=== PATIENT | male | born 2000 | race Hispanic/Latino ===

== ENCOUNTER 2021-02-25 12:06 | Inpatient (IN) | payer OTHER ==
[~2021-02-25] VITALS: Ht 172.7 cm; Wt 80.9 kg
[2021-02-25 14:56] LABS: HEMATOCRIT 48.9 % (42.0-52.0); HEMOGLOBIN 16.8 g/dl (13.5-17.5); MEAN CORPUSCULAR HGB CONC 34.4 g/dl (32.0-36.5); MEAN CORPUSCULAR VOLUME 90.2 fl (80.0-96.0); PLATELET COUNT, AUTOMATED 203 10^3/uL (150-450); RED BLOOD COUNT 5.42 10^6/uL (4.30-6.10); WHITE BLOOD COUNT 6.9 10^3/uL (4.0-10.0)
[2021-02-25 15:17] LABS: AMPHETAMINES LEVEL URINE NEGATIVE (NEGATIVE); BARBITURATES URINE NEGATIVE (NEGATIVE); BENZODIAZEPINES URINE NEGATIVE (NEGATIVE); CANNABINOIDS URINE NEGATIVE (NEGATIVE); COCAINE METABOLITE URINE NEGATIVE (NEGATIVE); METHADONE URINE NEGATIVE (NEGATIVE); OPIATES URINE NEGATIVE (NEGATIVE); PHENCYCLIDINE URINE NEGATIVE (NEGATIVE)
[2021-02-25 15:39] LABS: ACETAMINOPHEN LEVEL < 2.0 UG/ML (10.0-30.0); ALBUMIN 3.8 GM/DL (3.2-5.2); ALT/SGPT 18 U/L (12-78); BILIRUBIN,DIRECT 0.1 MG/DL (0.0-0.2); BILIRUBIN,TOTAL 0.5 MG/DL (0.2-1.0); BLOOD UREA NITROGEN 13 MG/DL (7-18); CALCIUM LEVEL 9.4 MG/DL (8.5-10.1); CARBON DIOXIDE LEVEL 29 MEQ/L (21-32); CHLORIDE LEVEL 106 MEQ/L (98-107); CREATININE FOR GFR 1.16 MG/DL (0.70-1.30); ETHYL ALCOHOL (ETHANOL) < 0.003 % (0.000-0.010); GLUCOSE, FASTING 76 MG/DL (70-100); POTASSIUM SERUM 4.4 MEQ/L (3.5-5.1); SALICYLATE LEVEL < 1.7 MG/DL (5.0-30.0); SODIUM LEVEL 141 MEQ/L (136-145); THYROID STIMULATING HORMONE 0.911 uIU/ML (0.463-3.98); TOTAL PROTEIN 7.3 GM/DL (6.4-8.2)
[2021-02-25 16:31] LABS: RSV AMPLIFICATION NEGATIVE (NEGATIVE)
--- NOTE | 2021-02-25 17:10 | MHIPNPDOC ---
[facility] Progress Note Progress Note DATE OF SERVICE: 02/25/21 Patient presented by PSA, meets criteria for involuntary admission. Was brought in by [place] [facility] after reporting suicidal ideation for past 2-3 weeks. stressors include home sick, refuses vaccination by c.o.c, misses brother and sister, has racing thoughts, decreased sleep, lack of appetite, thinks has hallucinations due to lack of sleep. Vital Signs Vital Signs Date Time Temp Pulse Resp B/P (MAP) Pulse Ox O2 Delivery O2 Flow Rate FiO2 02/25/21 12:27 97.9 61 16 127/71 (89) 100 Room Air Laboratory Data 24H Labs Laboratory Tests 2 02/25/21 13:17: Nucleated Red Blood Cells % (auto) 0.0, Anion Gap 6L, Calcium Level 9.4, Total Bilirubin 0.5, Direct Bilirubin 0.1, Aspartate Amino Transf (AST/SGOT) 12, Alanine Aminotransferase (ALT/SGPT) 18, Alkaline Phosphatase 78, Total Protein 7.3, Albumin 3.8, Albumin/Globulin Ratio 1.1, Thyroid Stimulating Hormone (TSH) 0.911, Salicylates Level < 1.7L, Acetaminophen Level < 2.0L, Ethyl Alcohol Level < 0.003 02/25/21 13:21: Urine Opiates Screen NEGATIVE, Urine Methadone Screen NEGATIVE, Urine Barbiturates Screen NEGATIVE, Urine Phencyclidine Screen NEGATIVE, Urine Amphetamines Screen NEGATIVE, Urine Benzodiazepines Screen NEGATIVE, Urine Cocaine Metabolite Screen NEGATIVE, Urine Cannabinoids Screen NEGATIVE 02/25/21 15:34: Coronavirus (COVID-19)(PCR) NEGATIVE, Influenza Type A (RT-PCR) NEGATIVE, Influ janny Type B (RT-PCR) NEGATIVE, Respiratory Syncytial Virus (PCR) NEGATIVE CBC/BMP Laboratory Tests 02/25/21 13:17 CARLOS MANUEL WARREN MD Feb 25, 2021 17:10
[2021-02-25] MEDS ORDERED: HOME MED LIST COMPLETE! XX SCH (19:55)
[2021-02-25] MEDS ORDERED: ACETAMINOPHEN TAB 650MG DOSE (2X325MG) PO PRN (20:10)
[2021-02-25] MEDS ORDERED: MOM 30ML SUSPENSION UDC PO PRN (20:10)
[2021-02-25] MEDS ORDERED: traZODone 50 MG TAB PO PRN (20:10)
[2021-02-25] MEDS ORDERED: OLANZapine ORAL DISINTEGRATING TAB 5MG PO PRN (20:10)
[2021-02-25] MEDS ORDERED: MAALOX 30 ML SUSP *UDC PO PRN (20:10)
[2021-02-25] MEDS ORDERED: diphenhydrAMINE 25MG CAP PO PRN (20:10)
[2021-02-25] MEDS ORDERED: NICOTINE 21MG/24HR 1 EA TRANSDERMAL TD PRN (20:10)
[2021-02-25] MEDS ORDERED: hydrOXYzine 50 MG TAB PO PRN (22:20)
[2021-02-25 22:45] VITALS: BP 141/97
[2021-02-26 06:43] VITALS: BP 132/58
--- NOTE | 2021-02-26 09:48 | HPEPDOC ---
[facility] Medical History & Physical Date of Admission Feb 25, 2021 Date of Service: Feb 26, 2021 History and Physical CHIEF COMPLAINT: Suicidal ideation HISTORY OF PRESENT ILLNESS: Patient was brought in emergency department via ambulance time. 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 Apparently he is quite homesick and unable to take leave or visit his family because he is unvaccinated. This has been quite stressful for him, and to the point where he has been losing a significant amount of sleep. Also, apparently has been having some suicidal ideations for the past few days at least. No homicidal ideations. Because of his suicidal ideations (without plan) he was brought to the emergency department for further evaluation and then admitted to the inpatient mental health unit. CODE STATUS: Full code PAST MEDICAL HISTORY: No past medical history PAST SURGICAL HISTORY: Appendectomy when he was approximately 11-12 years old Testicular torsion 2018 SOCIAL HISTORY: Denies tobacco use, alcohol use, drug use FAMILY HISTORY: Patient reports that his family members are healthy, and he is unaware of any medical conditions that they have. REVIEW OF SYSTEMS: Constitutional: Patient denies fevers, chills, night sweats, recent weight gain/loss. HEENT: Patient denies blurred or double vision, transient visual disturbances, postnasal drip, epistaxis, sore throat, difficulty chewing or swallowing food. Cardiovascular: Patient denies chest discomfort/pain, palpitations, exertional dyspnea, orthopnea, edema of the extremities, claudication. Respiratory: Patient denies dyspnea, wheezing, cough, hemoptysis, sputum production. Gastrointestinal: Patient denies nausea, vomiting, diarrhea, constipation, abdominal pain, melena, hematochezia, hematemesis, jaundice. Psychiatric: Admits to suicidal ideations without plans. Denies homicidal ana m ations. He does admit to having some auditory hallucinations which she attributes to lack of sleep. He states that sometimes he is awake and believes that he is talking on the phone with his family, and believes that he hears them talking back to him (or continues to hear an ongoing conversation with his family members), and then realizes that he is not actually on the phone or speaking to them. PHYSICAL EXAMINATION: General: Awake, alert, oriented. He does not appear to be in any acute distress at this time. HEENT: Head normocephalic atraumatic, conjunctiva are pink, sclera are nonicteric, buccal mucosa is pink and moist with no lesions in the oropharynx. Hearing is grossly intact to conversation. Respiratory: Clear to auscultation bilaterally with no wheezes, rales, or rhonchi. Cardiovascular: Regular rate and rhythm, with no rubs, gallops, or murmur. Abdomen: Soft, nontender, nondistended, no hepatosplenomegaly appreciated. Bowel sounds present. Extremities: 2+ pulses in the radial and dorsalis pedis bilaterally. No evidence of clubbing or cyanosis. ASSESSMENT: Suicidal ideations Auditory hallucination/delusion Depression Homesickness -Continue management per psychiatric team Otherwise he does not have any other acute or chronic medical conditions, and he does not take any home medications. Thank you for the consultation, please feel free to consult us once again if any medical issues arise. Vital Signs Vital Signs Date Time Temp Pulse Resp B/P (MAP) Pulse Ox O2 Delivery O2 Flow Rate FiO2 02/26/21 06:43 97.9 58 16 132/58 (82) 100 Room Air Laboratory Data Labs 24H Laboratory Tests 2 02/25/21 13:17: Nucleated Red Blood Cells % (auto) 0.0, Anion Gap 6L, Calcium Level 9.4, Total Bilirubin 0.5, Direct Bilirubin 0.1, Aspartate Amino Transf (AST/SGOT) 12, Al anine Aminotransferase (ALT/SGPT) 18, Alkaline Phosphatase 78, Total Protein 7.3, Albumin 3.8, Albumin/Globulin Ratio 1.1, Thyroid Stimulating Hormone (TSH) 0.911, Salicylates Level < 1.7L, Acetaminophen Level < 2.0L, Ethyl Alcohol Level < 0.003 02/25/21 13:21: Urine Opiates Screen NEGATIVE, Urine Methadone Screen NEGATIVE, Urine Barbiturates Screen NEGATIVE, Urine Phencyclidine Screen NEGATIVE, Urine Amphetamines Screen NEGATIVE, Urine Benzodiazepines Screen NEGATIVE, Urine Cocaine Metabolite Screen NEGATIVE, Urine Cannabinoids Screen NEGATIVE 02/25/21 15:34: Coronavirus (COVID-19)(PCR) NEGATIVE, Influenza Type A (RT-PCR) NEGATIVE, Influenza Type B (RT-PCR) NEGATIVE, Respiratory Syncytial Virus (PCR) NEGATIVE CBC/BMP Laboratory Tests 02/25/21 13:17 Home Medications No Active Prescriptions or Reported Meds Allergies Coded Allergies: No Known Allergies (Verified Allergy, Unknown, 02/25/21) A-FIB/CHADSVASC A-FIB History Current/History of A-Fib/PAF?: No OTILIO ACE DO Feb 26, 2021 09:48
--- NOTE | 2021-02-26 17:14 | MHHPEPDOC ---
General Date Of Admission: Feb 25, 2021 Legal Status: 9.39 Chief Complaint "I was depressed and anxious, and having some suicidal thoughts." History of Present Illness HISTORY OF THE PRESENT ILLNESS: Patient is a 20 -year-old , male, who reporting increased depression and anxiety and suicidal thoughts. 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 Recently reporting having auditory hallucinations after Grandfather , poor sleep, having passive suicidal thinking and poor appetite (Loss of 50+ in 9 months) PER ED REPORT: Pt was referred to ED by [facility] after he presented to the walk-in clinic stating he was feeling suicidal with no specific plan. Pt states, "I'm upset." Pt reports struggling with suicidal thoughts for the past 2-3 wks with no specific plan. Stressors include feeling very homesick and [employer] is refusing him to go on leave because he is not vaccinated. Pt is refusing to get vaccinated, therefore is not able to leave and visit his family back home([place]). He denies any other stressors but does report his mind is racing and is having a difficult time concentrating. Pt states he is still feeling suicidal, but does not believe he would ever attempt and states, "I'm just having bad thoughts, but I would never do anything." In addition to SI, pt reports suffering from AH. He suspects it is due to lack sleep Psychiatric Review of Systems Depression (2 or more weeks): depressed mood, anhedonia, insomnia/hypersomnia, feelings of excess/guilt, feelings of worthlesness (and helplessness), decreased energy, difficulty concentrating, psychomotor changes, suicidal thoughts [place] (4 or more days of): denies Psychosis: auditory hallucination, paranoia PTSD: denies Anxiety: situational anxiety, stressor related anxiety Anxiety/ 6 months or more of: difficulty concentrating Past Psychiatric History Previous Psychiatric Diagnosis: None Previous Psychiatric Admissions: First hospitalization Suicide Attempts: Ideations only Psychiatric Follow-up: [facility] Psychiatric medications: None Past Medical History Medical Problems None Head Injury: No Seizures: No Hospitalizations: Yes Surgeries: Yes (Appendectomy, Testicular Torsion) Family Medical/Psychiatric HX Medical Problems No contributory issues Psychiatric Disorders: No Addiction: No Suicide Attemps/Completions: No Addiction History denies Social History Childhood: Born in [place], [place]. Family moved to [place] 5 years ago and he had his first bout of depression. 4 Sisters and one younger brother. He is the second oldest. When he was in [place] he had difficulty is school, moved to [place] and did not go to school right away (4 months) did well in school in [place]. 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 Stressors 1. 2. When I can't help the people I love. Mental Status Examination General Appearance: well groomed, appears stated age, hospital scubs/clothing Build: average Demeanor: guarded Eye Contact: average Activity: anxious Behavior: cooperative Speech: spontaneous, low in volume Mood: depressed, anxious Affect: constricted Thought Process: logical/linear Thought Content (Delusions): none reported Thought Content (Other): guarded, coherent Thought Content (Aggressive): none reported Perception (Hallucinations): auditory Perception (Other): none reported Cognition (Impairment of): none reported Cognition(Intelligence Est.): average Oriented: Awake, Alert, Oriented times three Insight: fair Judgment: Fair Psychosis: Denies Diagnoses Major Depressive Disorder, Single Episode, Mild A-FIB/CHADSVASC A-FIB History Current/History of A-Fib/PAF?: No Current PO Anticoag Therapy: No Assessment Patient is a 20 -year-old , male, who reporting increased depression and anxiety and suicidal thoughts. 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 Recently reporting having auditory hallucinations after Grandfather , poor sleep, having passive suicidal thinking and poor appetite (Loss of 50+ in 9 months). He reports being very homesick and feeling badly that he cannot help his family more (monetary and presence). Patient is agreeable to medications and will start Zoloft for depression and Hydroxyzine for anxiety. Patient will be afforded individual and group therapy, medication management, and safe environment. She will be discharged when she is stable Initial Treatment Plan 1. Patient was admitted on a [9.39] status. 2. Complete history was obtained. 3. With patients permission, family will be contacted and database will be expanded. 4. Patients medication regimen will be reviewed and changed accordingly. 5. Patient will be provided with protected environment. 6. Patient will be treated with individual, group, and milieu therapies. 7. Patient will receive supportive psych-education. 8. Discharge planning will commence immediately. 9. Outpatient follow-up treatment will be strongly recommended. 10. The initial treatment plan will focus initially on: * Depression. * Risk for suicide. ESTIMATED LENGTH OF STAY: 3-5 DAYS. TIME SPENT COUNSELING AND COORDINATING INITIAL CARE: 60 minutes. Tobacco Cessation Screen If Patient is a Smoker Not a smoker N/A-No Antipsychotics Vital Signs Vital Signs Date Time Temp Pulse Resp B/P (MAP) Pulse Ox O2 Delivery O2 Flow Rate FiO2 02/26/21 06:43 97.9 58 16 132/58 (82) 100 Room Air Medications No Active Prescriptions or Reported Meds Allergies Coded Allergies: No Known Allergies (Verified Allergy, Unknown, 02/25/21) AIDAN ALANIS NP Feb 26, 2021 17:14
[2021-02-26 18:58] VITALS: BP 133/71
[2021-02-26] MEDS ORDERED: SERTRALINE HCL 25 MG TABLET PO ONE (21:00)
[2021-02-27 06:40] VITALS: BP 112/54
--- NOTE | 2021-02-27 12:43 | MHDSPDOC ---
[facility] Discharge Summary Discharge Summary DATE OF ADMISSION: Feb 25, 2021 at 20:06 DATE OF DISCHARGE: Feb 27, 2021 at 0938 DISCHARGE DIAGNOSES: Major Depressive Disorder, Single Episode, Mild REASON FOR ADMISSION: Patient is a 20 -year-old , male, who reporting increased depression and anxiety and suicidal thoughts . 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 "I was depressed and anxious, and having some suicidal thoughts." Recently reporting having auditory hallucinations after Grandfather , poor sleep, having passive suicidal thinking and poor appetite (Loss of 50+ in 9 months) PER ED REPORT: Pt was referred to ED by [facility] after he presented to the walk-in clinic stating he was feeling suicidal with no specific plan. Pt states, "I'm upset." Pt reports struggling with suicidal thoughts for the past 2-3 wks with no specific plan. Stressors include feeling very homesick and [employer] is refusing him to go on leave because he is not vaccinated. Pt is refusing to get vaccinated, therefore is not able to leave and visit his family back home([place]). He denies any other stressors but does report his mind is racing and is having a difficult time concentrating. Pt states he is still feeling suicidal, but does not believe he would ever attempt and states, "I'm just having bad thoughts, but I would never do anything." In addition to SI, pt reports suffering from AH. He suspect s it is due to lack sleep VITAL SIGNS: See below. CONSULTANTS INVOLVED: See Medical H + P by Hospitalist TREATMENT AND PROGRESS ON THE UNIT: Patient was admitted to the [facility] on a 9.39 legal status was afforded the following treatment modalities: 1) Individual Therapy 2) Group Therapy 3) Medication Management 4) Milieu Therapy 5) Safe Environment HOSPITAL COURSE: Patient was admitted to [facility] on a 9.39 legal status. Patient declined medications, although Sertraline was ordered. He felt that strongly about medications. Mood, anxiety, and intrusive thoughts improved with treatment. Pt attended groups daily during stay. He was social with peers and visible on the unit, pts symptoms improved with treatment. On day of discharge pt. denied depression, anxiety, insomnia, SI/HI, hallucinations, delusions. Pt was discharged home with follow-up at [facility]. Pt felt safe for discharge. DISCHARGE ASSESSMENT: In today's interview, patient is alert and oriented, pt.s dress is appropriate. Hygiene and grooming is well-kempt. Smiles on approach and is pleasant and engaged in the interview. Denies depression and anxiety. Denies suicidal and homicidal ideation, planning or intent. Denies and is not observed with hyacinth, psychotic symptoms of delusions, bizarre thinking, obsessions, paranoia, ruminations illogical thoughts, flight of ideas or having poor insight and judgement. Reinforced with patient need to abstain from alcohol and drugs. At discharge patient has normal mentation, declines further hospitalization on a voluntary status and meets criteria for discharge today. Reviewed with patient today his stressors, with patient on reducing some of his anxieties surrounding chain of command toxic environment and how to perceive negative thinking with regards to . Also encourage patient to consider that his family may not need him and that he is catastrophizing that they are unable to survive without his help. MENTAL STATUS EXAMINATION ON DISCHARGE: Patient is a 20 -year-old , male, who reporting increased depression and anxiety and suicidal thoughts . Patient is cooperative and pleasant in the interview sitting upright in a chair. His hygiene and grooming is well kempt. He maintains a fair eye contact, at times during the interview it is avoidant. Speech: Is fluid, conversant, normal rate, tone and volume Language skills are intact Thought processes including: linear and goal oriented Thought content: denies depression and anxiety. Denies suicidal/homicidal ideation, planning or intent. Abstract reasoning, and computation: fair Description of associations: denies, none observed Description of abnormal or psychotic thoughts: denies, none observed. Judgment: fair Insight: fair Orientation: alert and oriented to person, place, time and situation Recent and remote memory: intact Attention span and concentration: good Language: expansive Fund of knowledge: average Mood: Euthymic Mood Affect: reactive Suicide Risk Assessment: 1) Does the patient wish to be ? No 2) Since your admission, have you had any actual thought of killing yourself? No 3) Since your admission, have you been thinking about how you might do this? No 4) Since your admission, have you had these thoughts and had some intention of acting on them? No 5) Since your admission, have you started to work out or worked out the details of how to kill yourself? No 5A) Do you intent to carry out this plan? No and NA 6) Have you ever done anything, started anything, or prepared to do anything with any intent to ? No 6A) How long since your admission did you do any of these? NA MEDICATIONS ON DISCHARGE: See Medication Reconciliation PLAN/FOLLOWUP ARRANGEMENTS: [facility] The amount of time spent in the coordination of care for this patient was approx imately 25 minutes. ETOH/Disorder Med Rx ETOH/DRUG DISORDER RX: N/A Vital Signs/I&Os Vital Signs Date Time Temp Pulse Resp B/P (MAP) Pulse Ox O2 Delivery O2 Flow Rate FiO2 02/27/21 06:40 96.8 83 16 112/54 (73) 100 Room Air Medications No Active Prescriptions or Reported Meds Allergies Coded Allergies: No Known Allergies (Verified Allergy, Unknown, 02/25/21) AIDAN ALANIS NP Feb 27, 2021 09:39
[2021-02-27] MEDS ORDERED: SERTRALINE HCL 50 MG TAB PO SCH (21:00)
== END 2021-02-27 12:44 | disposition home or self-care (01) | DRG 885 ==
LOC: M ED 12:06 → M ED INP 20:06 → M PSY 22:20
PROVIDERS: ADMIT Psychiatry & Neurology Psychiatry; ATTEND Psychiatry & Neurology Psychiatry
DX: F32.0 Major depressive disorder, single episode, mild (principal); R45.851 Suicidal ideations; R44.0 Auditory hallucinations; F43.20 Adjustment disorder, unspecified; Z90.49 Acquired absence of other specified parts of digestive tract; Z63.4 Disappearance and death of family member; Z20.822 Contact with and (suspected) exposure to COVID-19